=== PATIENT | female | born 1995 | race Caucasian/White ===

== ENCOUNTER 2017-10-20 14:06 | Emergency (ER) | payer OTHER ==
[2017-10-20 15:59] LABS: ADD MAN DIFF? NO
[2017-10-20 16:02] LABS: WHITE BLOOD COUNT 11.3 10^3/ul (4.8-10.8)
[2017-10-20 16:02] LABS: BASOPHILS % 0.3 % (0.0-2.0); EOSINOPHILS # 0.1 10^3/ul (0.0-0.5); EOSINOPHILS % 0.4 % (0.0-7.0); HEMATOCRIT 41.7 % (37.0-47.0); HEMOGLOBIN 14.4 g/dl (12.0-16.0); LYMPHOCYTES # 2.3 10^3/ul (0.8-2.9); LYMPHOCYTES % 20.4 % (15.0-51.0); MEAN CORPUSCULAR HEMOGLOBIN 30.5 pg (29.0-33.0); MEAN CORPUSCULAR HGB CONC 34.5 g/dl (32.0-37.0); MEAN CORPUSCULAR VOLUME 88.3 fl (82.0-101.0); MONOCYTE # 0.7 10^3/ul (0.3-0.9); NEUTROPHIL # 8.2 10^3/ul (1.6-7.5); NEUTROPHILS % 72.5 % (39.0-77.0); PLATELET COUNT 323 10^3/UL (140-415); RED BLOOD COUNT 4.72 10^6/ul (4.20-5.40); RED CELL DISTRIBUTION WIDTH 11.9 % (11.5-14.5)
[2017-10-20 16:13] LABS: ADD UMIC YES; UR AMORPHOUS CRYSTAL MANY /HPF (NONE SEEN); UR ASCORBIC ACID 40 mg/dL (NEGATIVE); UR BACTERIA FEW /HPF (NONE SEEN); UR BILIRUBIN (Dip) NEGATIVE (NEGATIVE); UR BLOOD (Dip) NEGATIVE (NEGATIVE); UR CLARITY CLOUDY (CLEAR); UR COLOR YELLOW (YELLOW); UR GLUCOSE (Dip) NEGATIVE (NEGATIVE); UR KETONES (Dip) NEGATIVE (NEGATIVE); UR LEUKOCYTE ESTERASE (Dip) NEGATIVE Leu/ul (NEGATIVE); UR MUCUS FEW /HPF (NONE SEEN); UR NITRITE (Dip) NEGATIVE (NEGATIVE); UR RBC 3 /HPF (0-5); UR SPECIFIC GRAVITY (Dip) 1.018 (1.003-1.030); UR TOTAL PROTEIN (Dip) NEGATIVE (NEGATIVE); UR UROBILINOGEN (Dip) 1+ mg/dL (NEGATIVE); UR WBC 3 /HPF (0-5)
== END 2017-10-20 17:44 | disposition home or self-care (01) ==
LOC: FTE 14:06
DX: Z04.1 Encounter for examination and observation following transport accident (principal); Z3A.09 9 weeks gestation of pregnancy
CPT/HCPCS: 36415; 76801; 76817; 81001; 84702; 85025; 86900; 86901; 99284-25

== ENCOUNTER 2018-04-28 16:00 | Outpatient (CLI) | payer OTHER ==
[2018-04-28 17:11] LABS: ADD MAN DIFF? NO
[2018-04-28 17:12] LABS: WHITE BLOOD COUNT 11.1 10^3/ul (4.8-10.8)
[2018-04-28 17:12] LABS: BASOPHILS % 0.4 % (0.0-2.0); EOSINOPHILS # 0.1 10^3/ul (0.0-0.5); EOSINOPHILS % 1.1 % (0.0-7.0); HEMATOCRIT 36.2 % (37.0-47.0); HEMOGLOBIN 11.9 g/dl (12.0-16.0); LYMPHOCYTES # 1.9 10^3/ul (0.8-2.9); LYMPHOCYTES % 17.3 % (15.0-51.0); MEAN CORPUSCULAR HEMOGLOBIN 29.6 pg (29.0-33.0); MEAN CORPUSCULAR HGB CONC 32.9 g/dl (32.0-37.0); MEAN PLATELET VOLUME 10.5 fl (7.4-10.4); MONOCYTE # 0.5 10^3/ul (0.3-0.9); MONOCYTES % 4.7 % (0.0-11.0); NEUTROPHIL # 8.4 10^3/ul (1.6-7.5); NEUTROPHILS % 75.7 % (39.0-77.0); PLATELET COUNT 301 10^3/UL (140-415); RED BLOOD COUNT 4.02 10^6/ul (4.20-5.40); RED CELL DISTRIBUTION WIDTH 12.8 % (11.5-14.5)
[2018-04-28 17:31] LABS: ALANINE AMINOTRANSFERASE 59 IU/L (13-69); ALBUMIN 3.6 g/dl (3.3-4.9); ALBUMIN/GLOBULIN RATIO 1.02; ALKALINE PHOSPHATASE 230 IU/L (42-121); ANION GAP 12 (5-13); ASPARTATE AMINO TRANSFERASE 101 IU/L (15-46); BLOOD UREA NITROGEN 7 mg/dl (7-20); CALCIUM 9.4 mg/dl (8.4-10.2); CARBON DIOXIDE 23 mmol/L (21-31); CHLORIDE 103 mmol/L (97-110); CREATININE 0.37 mg/dl (0.44-1.00); Estimated GFR > 60 mL/min (>60); GLUCOSE 85 mg/dl (70-220); POTASSIUM 3.9 mmol/L (3.5-5.1); SODIUM 138 mmol/L (135-144); TOTAL PROTEIN 7.1 g/dl (6.1-8.1)
[2018-04-28 18:11] LABS: ADD UMIC YES; UR AMORPHOUS CRYSTAL FEW /HPF (NONE SEEN); UR ASCORBIC ACID NEGATIVE (NEGATIVE); UR BILIRUBIN (Dip) NEGATIVE (NEGATIVE); UR BLOOD (Dip) NEGATIVE (NEGATIVE); UR CLARITY CLEAR (CLEAR); UR COLOR YELLOW (YELLOW); UR GLUCOSE (Dip) NEGATIVE (NEGATIVE); UR KETONES (Dip) NEGATIVE (NEGATIVE); UR LEUKOCYTE ESTERASE (Dip) 1+ Leu/ul (NEGATIVE); UR MUCUS FEW /HPF (NONE SEEN); UR NITRITE (Dip) NEGATIVE (NEGATIVE); UR RBC 1 /HPF (0-5); UR SPECIFIC GRAVITY (Dip) 1.011 (1.003-1.030); UR SQUAMOUS EPITHELIAL CELL FEW /HPF (FEW); UR TOTAL PROTEIN (Dip) NEGATIVE (NEGATIVE); UR UROBILINOGEN (Dip) NEGATIVE (NEGATIVE); UR WBC 4 /HPF (0-5)
== END 2018-04-28 18:48 | disposition home or self-care (01) ==
LOC: OBT 16:00 → L-D 16:01 → OBT 18:48
DX: O26.893 Other specified pregnancy related conditions, third trimester (principal); O21.0 Mild hyperemesis gravidarum; R51 Headache; Z3A.37 37 weeks gestation of pregnancy
CPT/HCPCS: 76818; 80053; 81001; 84560; 85025

== ENCOUNTER 2018-05-19 03:20 | Inpatient (IN) | payer OTHER ==
[2018-05-19] MEDS ORDERED: OXYCODONE/ASPIRIN (4.88/325) TAB PO (04:30)
[2018-05-19] MEDS ORDERED: OXYTOCIN 30 UNITS/LR 500 ML IV ×3 (04:30→21:30)
[2018-05-19] MEDS ORDERED: BUTORPHANOL 2 MG INJ IV (04:30)
[2018-05-19] MEDS ORDERED: CARBOPROST 250 MCG INJ IM ×2 (04:30→21:30)
[2018-05-19] MEDS ORDERED: MISOPROSTOL 200 MCG TAB PR ×2 (04:30→21:30)
[2018-05-19] MEDS ORDERED: LIDOCAINE 1% (MPF) 30 ML INJ INJ (04:30)
[2018-05-19] MEDS: LACTATED RINGER'S 1,000 ML IV ×4 (04:42→16:48)
[2018-05-19 05:01] LABS: ADD MAN DIFF? NO
[2018-05-19 05:06] LABS: WHITE BLOOD COUNT 9.9 10^3/ul (4.8-10.8)
[2018-05-19 05:06] LABS: ADD UMIC NO; BASOPHILS % 0.3 % (0.0-2.0); EOSINOPHILS # 0.1 10^3/ul (0.0-0.5); EOSINOPHILS % 1.2 % (0.0-7.0); HEMATOCRIT 36.3 % (37.0-47.0); HEMOGLOBIN 11.7 g/dl (12.0-16.0); LYMPHOCYTES # 2.3 10^3/ul (0.8-2.9); LYMPHOCYTES % 22.9 % (15.0-51.0); MEAN CORPUSCULAR HEMOGLOBIN 28.9 pg (29.0-33.0); MEAN CORPUSCULAR HGB CONC 32.2 g/dl (32.0-37.0); MEAN CORPUSCULAR VOLUME 89.6 fl (82.0-101.0); MEAN PLATELET VOLUME 10.9 fl (7.4-10.4); MONOCYTE # 0.6 10^3/ul (0.3-0.9); MONOCYTES % 5.9 % (0.0-11.0); NEUTROPHIL # 6.8 10^3/ul (1.6-7.5); PLATELET COUNT 281 10^3/UL (140-415); RED BLOOD COUNT 4.05 10^6/ul (4.20-5.40); RED CELL DISTRIBUTION WIDTH 12.8 % (11.5-14.5); UR ASCORBIC ACID NEGATIVE (NEGATIVE); UR BILIRUBIN (Dip) NEGATIVE (NEGATIVE); UR BLOOD (Dip) NEGATIVE (NEGATIVE); UR CLARITY CLEAR (CLEAR); UR COLOR YELLOW (YELLOW); UR GLUCOSE (Dip) NEGATIVE (NEGATIVE); UR KETONES (Dip) NEGATIVE (NEGATIVE); UR LEUKOCYTE ESTERASE (Dip) NEGATIVE Leu/ul (NEGATIVE); UR NITRITE (Dip) NEGATIVE (NEGATIVE); UR SPECIFIC GRAVITY (Dip) 1.015 (1.003-1.030); UR TOTAL PROTEIN (Dip) NEGATIVE (NEGATIVE); UR UROBILINOGEN (Dip) NEGATIVE (NEGATIVE)
[2018-05-19 05:25] LABS: INR 0.88; PT RATIO 0.9
[2018-05-19 05:26] LABS: PARTIAL THROMBOPLASTIN TIME 24.8 Sec (23.0-35.0)
[2018-05-19 05:33] LABS: ALANINE AMINOTRANSFERASE 56 IU/L (13-69); ALBUMIN 3.6 g/dl (3.3-4.9); ALBUMIN/GLOBULIN RATIO 1.02; ALKALINE PHOSPHATASE 287 IU/L (42-121); ANION GAP 12 (5-13); ASPARTATE AMINO TRANSFERASE 101 IU/L (15-46); BILIRUBIN,INDIRECT 0.1 mg/dl (0-1.1); BILIRUBIN,TOTAL 0.1 mg/dl (0.2-1.3); BLOOD UREA NITROGEN 10 mg/dl (7-20); CALCIUM 9.8 mg/dl (8.4-10.2); CARBON DIOXIDE 22 mmol/L (21-31); CHLORIDE 107 mmol/L (97-110); CREATININE 0.37 mg/dl (0.44-1.00); Estimated GFR > 60 mL/min (>60); GLUCOSE 90 mg/dl (70-220); POTASSIUM 3.9 mmol/L (3.5-5.1); SODIUM 141 mmol/L (135-144); TOTAL PROTEIN 7.1 g/dl (6.1-8.1); URIC ACID 4.8 mg/dl (3.1-7.9)
[2018-05-19] MEDS ORDERED: NALOXONE (0.4 MG/ML) INJ IV (06:00)
[2018-05-19] MEDS ORDERED: ONDANSETRON 4 MG INJ IV ×2 (06:00→21:30)
[2018-05-19] MEDS ORDERED: DIPHENHYDRAMINE 50 MG INJ IV ×2 (06:00→21:30)
[2018-05-19] MEDS: FENTAnyl 2MCG/ML-ROPIV 0.2% 100 ML BAG EPI ×2 (12:16→18:02)
[2018-05-19] MEDS: OXYTOCIN 30 UNITS/LR 500 ML IV (12:20)
[2018-05-19 15:46] LABS: RAPID PLASMA REAGIN NONREACTIVE (NR)
[2018-05-19] MEDS ORDERED: AMPICILLIN 2 GM/NS (PMX) 100 ML (16:20)
[2018-05-19] MEDS: AMPICILLIN 2 GM/NS (PMX) 100 ML IVPB ×3 (16:48→21:00)
[2018-05-19] MEDS ORDERED: GENTAMICIN 120 MG in SOD CHLORIDE 0.9% 100 ML IV (17:00)
[2018-05-19] MEDS: GENTAMICIN 120 MG/NS (PMX) 100 ML IVPB (18:06)
[2018-05-19] MEDS: LACTATED RINGER'S 1,000 ML IV* (21:03)
[2018-05-19] MEDS ORDERED: SENNA/DOCUSATE NA (8.6MG/50MG) TAB PO (21:30)
[2018-05-19] MEDS ORDERED: MAGNESIUM HYDROXIDE 30ML CUP PO (21:30)
[2018-05-19] MEDS ORDERED: DIPHENHYDRAMINE 25 MG CAP PO (21:30)
[2018-05-19] MEDS ORDERED: HYDROCODONE/APAP (5/325) TAB PO ×2 (21:30)
[2018-05-19] MEDS ORDERED: NA PHOSPHATE/BIPHOS 133 ML ENEMA PR (21:30)
[2018-05-19] MEDS ORDERED: ONDANSETRON 4 MG TAB PO (21:30)
[2018-05-19] MEDS ORDERED: DIBUCAINE 1% 30 GM OINT TOP (21:30)
[2018-05-19] MEDS: IBUPROFEN 600 MG TAB PO (22:18)
[2018-05-19] MEDS: METHYLERGONOVINE 0.2 MG INJ IM (22:19)
[2018-05-20] MEDS: OXYTOCIN 30 UNITS/LR 500 ML IV (01:27)
[2018-05-20] MEDS: AMPICILLIN 2 GM/NS (PMX) 100 ML IVPB ×6 (01:48→20:48)
[2018-05-20] MEDS: GENTAMICIN 120 MG/NS (PMX) 100 ML IVPB ×3 (02:42→18:08)
[2018-05-20] MEDS: IBUPROFEN 600 MG TAB PO ×4 (05:47→17:28)
[2018-05-20 08:24] LABS: ADD MAN DIFF? NO
[2018-05-20 08:29] LABS: WHITE BLOOD COUNT 15.1 10^3/ul (4.8-10.8)
[2018-05-20 08:29] LABS: BASOPHIL # 0.1 10^3/ul (0.0-0.1); BASOPHILS % 0.3 % (0.0-2.0); EOSINOPHILS % 0.3 % (0.0-7.0); HEMOGLOBIN 11.3 g/dl (12.0-16.0); LYMPHOCYTES # 1.9 10^3/ul (0.8-2.9); LYMPHOCYTES % 12.7 % (15.0-51.0); MEAN CORPUSCULAR HEMOGLOBIN 29.4 pg (29.0-33.0); MEAN CORPUSCULAR HGB CONC 33.2 g/dl (32.0-37.0); MEAN CORPUSCULAR VOLUME 88.3 fl (82.0-101.0); MEAN PLATELET VOLUME 10.8 fl (7.4-10.4); MONOCYTE # 0.8 10^3/ul (0.3-0.9); MONOCYTES % 5.6 % (0.0-11.0); NEUTROPHIL # 12.2 10^3/ul (1.6-7.5); NEUTROPHILS % 80.6 % (39.0-77.0); PLATELET COUNT 257 10^3/UL (140-415); RED BLOOD COUNT 3.85 10^6/ul (4.20-5.40); RED CELL DISTRIBUTION WIDTH 13.2 % (11.5-14.5)
[2018-05-20] MEDS: SENNA/DOCUSATE NA (8.6MG/50MG) TAB PO ×2 (08:58→21:00)
[2018-05-20] MEDS: LANOLIN HPA 1 PKT TOP (08:58)
[2018-05-20] MEDS: BENZOCAINE 20% 56 ML SPRAY TOP (08:58)
[2018-05-20] MEDS: WITCH HAZEL/GLYCERIN PAD PR (08:58)
[2018-05-21] MEDS: LACTATED RINGER'S 1,000 ML IV* (01:00)
[2018-05-21] MEDS: AMPICILLIN 2 GM/NS (PMX) 100 ML IVPB ×3 (01:36→08:56)
[2018-05-21] MEDS: GENTAMICIN 120 MG/NS (PMX) 100 ML IVPB ×2 (02:38→10:09)
[2018-05-21] MEDS: IBUPROFEN 600 MG TAB PO ×3 (06:05→12:30)
[2018-05-21] MEDS: SENNA/DOCUSATE NA (8.6MG/50MG) TAB PO (08:56)
[2018-05-21] MEDS: DIPHTH/TET/ACEL PERTUSS (ADULT) 0.5 ML VIAL IM* (08:57)
[2018-05-21] MEDS: VARICELLA VACCINE LIVE/PF 1,350 UNIT/0.5 ML ML SC* (09:00)
[2018-05-21] MEDS: MEASLES,MUMPS,RUBELLA VACCINE INJ SC* (09:00)
== END 2018-05-21 13:55 | disposition home or self-care (01) | DRG 807 ==
LOC: OBT 03:20 → L-D 03:20 → OBT 04:01 → L-D 04:01 → PP1 23:10
PROC: 10E0XZZ Delivery of Products of Conception, External Approach (ICD-10-PCS; principal; 2018-05-19)
DX: O80 Encounter for full-term uncomplicated delivery (principal); Z37.0 Single live birth; Z3A.40 40 weeks gestation of pregnancy
CPT/HCPCS: 62319; 76815; 80053; 81003; 84560; 85025; 85384; 85610; 85730; 86592; 86850; 86900; 86901; 90716